=== PATIENT | male | born 1975 ===

== ENCOUNTER → 2016-06-19 | Outpatient (CLI) | payer BC ==
[2016-06-19 14:01] LABS: BASO % 0.7 %; BASO ABS # 0.03 K/uL (0-0.2); COMPLETE YES; EOS % 2.3 %; HEMATOCRIT 41.9 % (42-52); IG% 0.2 %; LYMPH % 33.6 %; LYMPH ABS # 1.46 K/uL (1.2-3.4); MEAN CELL VOLUME 87.1 fL (80-100); MEAN CORPUSCULAR HEMOGLOBIN 29.7 pg (25-34); MEAN CORPUSCULAR HGB CONC 34.1 g/dl (32-36); MEAN PLATELET VOLUME 11.2 fL (7.4-10.4); MONO % 11.7 %; NEUT % 51.5 %; PLATELET COUNT 235 K/uL (130-400); RED BLOOD COUNT 4.81 M/uL (4.7-6.1); WHITE BLOOD COUNT 4.35 K/uL (4.8-10.8)
[2016-06-19 14:30] LABS: ALT/SGPT 31 U/L (12-78); AST/SGOT 21 U/L (15-37); BLOOD UREA NITROGEN 20 mg/dl (7-18); BUN/CREATININE RATIO 18.6 (10-20); CALCIUM 9.2 mg/dl (8.5-10.1); CARBON DIOXIDE 29 mmol/L (21-32); CHLORIDE 106 mmol/L (98-107); GLUCOSE 85 mg/dl (70-99); POTASSIUM 4.3 mmol/L (3.5-5.1); SODIUM 141 mmol/L (136-145)
[2016-06-19 14:34] LABS: ALB/GLOB RATIO 1.1 (0.9-2); ALKALINE PHOSPHATASE 45 U/L (45-117); CHOLESTEROL 197 mg/dl (0-200); CHOLESTEROL/HDL RATIO 2.5; HDL CHOLESTEROL 79 mg/dl; LDL CHOLESTEROL CALCULATED 112 mg/dl; PROSTATE SPECIFIC ANTIGEN 0.872 ng/ml (0.000-4.000); TRIGLYCERIDES 32 mg/dl (0-150); VERY LOW DENSITY LIPOPROT CALC 6 mg/dl
== END | disposition home or self-care (01) ==
LOC: C.LABSPEC 13:27
PROVIDERS: ATTEND Family Medicine
DX: Z00.00 Encounter for general adult medical examination without abnormal findings (principal); E78.2 Mixed hyperlipidemia; Z12.5 Encounter for screening for malignant neoplasm of prostate

== ENCOUNTER → 2017-06-19 | Outpatient (CLI) | payer BC ==
[2017-06-19 12:36] LABS: BASO % 0.7 %; BASO ABS # 0.02 K/uL (0-0.2); EOS % 6.3 %; EOS ABS # 0.19 K/uL (0-0.5); HEMATOCRIT 38.4 % (42-52); HEMOGLOBIN 13.4 g/dL (14.0-18.0); IG# 0.01 K/uL (0.00-0.02); LYMPH % 36.2 %; LYMPH ABS # 1.09 K/uL (1.2-3.4); MEAN CELL VOLUME 85.5 fL (80-100); MEAN CORPUSCULAR HEMOGLOBIN 29.8 pg (25-34); MEAN CORPUSCULAR HGB CONC 34.9 g/dl (32-36); MEAN PLATELET VOLUME 10.9 fL (7.4-10.4); MONO % 9.3 %; MONO ABS # 0.28 K/uL (0.11-0.59); NEUT % 47.2 %; NEUT ABS # 1.42 K/uL (1.4-6.5); PLATELET COUNT 222 K/uL (130-400); RED CELL DISTRIBUTION WIDTH SD 40.7 fL (36.4-46.3); WHITE BLOOD COUNT 3.01 K/uL (4.8-10.8)
[2017-06-19 13:01] LABS: AST/SGOT 21 U/L (15-37); BLOOD UREA NITROGEN 11 mg/dl (7-18); CALCIUM 8.8 mg/dl (8.5-10.1); CARBON DIOXIDE 28 mmol/L (21-32); CREATININE 0.97 mg/dl (0.60-1.40); GLUCOSE 104 mg/dl (70-99); POTASSIUM 4.3 mmol/L (3.5-5.1); SODIUM 139 mmol/L (136-145)
[2017-06-19 13:06] LABS: ALKALINE PHOSPHATASE 42 U/L (45-117); ALT/SGPT 27 U/L (12-78); CHOLESTEROL 193 mg/dl (0-200); LDL CHOLESTEROL CALCULATED 102 mg/dl; TOTAL PROTEIN 7.6 gm/dl (6.4-8.2)
== END | disposition home or self-care (01) ==
LOC: C.LABSPEC 12:21
PROVIDERS: ATTEND Family Medicine
DX: Z00.00 Encounter for general adult medical examination without abnormal findings (principal); E78.2 Mixed hyperlipidemia; Z12.5 Encounter for screening for malignant neoplasm of prostate